=== PATIENT | male | born 1990 | race Caucasian/White ===

== ENCOUNTER 2021-09-03 01:50 | Emergency (ER) | payer MEDICAID, SELFPAY ==
[2021-09-03 02:19] VITALS: BP 134/64; PULSE 72; RESP 18; TEMP 37.1; O2SAT 97; BMI 22.1
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
[2021-09-03] MEDS: HYDROcodone-acetaminophen 7.5-325 mg Tablet 1 TAB PO ×2 (02:59→03:50)
--- NOTE | 2021-09-03 03:51 | PC.NURSE ---
Pt placed in posterior long-arm splint, R-arm, 4 inch orthoglass used, sling applied.
--- NOTE | 2021-09-03 14:24 | DCPLANNER ---
Addendum entered by Mariana Mejía 09/12/21 18:57: Patient had a follow up appointment scheduled for 09.06.21 with ortho - patient did attend appointment. Addendum entered by Mariana Mejía 09/05/21 18:50: Patient has a follow up appointment scheduled for Monday, September 06, 2021 at 10:[address] Larsen at ortho. Clinic will call patient with appointment information. Original Note: publication manager had message to schedule a follow up appointment for patient with ortho. publication manager sent patients information to the front office staff at ortho. Patients information will be printed and reviewed. Clinic will call patient with appointment information.
== END 2021-09-03 03:54 | disposition home or self-care (01) ==
PROVIDERS: Emergency Provider Physician Assistant
DX: S59.901A Unspecified injury of right elbow, initial encounter (principal); V28.4XXA Motorcycle driver injured in noncollision transport accident in traffic accident, initial encounter
CPT/HCPCS: 29105; 70450; 73030; 73060; 73080; 99283

== ENCOUNTER → 2021-09-06 11:33 | Outpatient (BNVA) | payer MEDICAID, SELFPAY | PROVIDERS: Referring Provider Physician Assistant; Visit Provider Orthopaedic Surgery | DX: S52.131A Displaced fracture of neck of right radius, initial encounter for closed fracture (principal); W19.XXXA Unspecified fall, initial encounter | CPT/HCPCS: 24650 ==

== ENCOUNTER 2022-06-15 21:08 | Emergency (ER) | payer MEDICAID, SELFPAY ==
[2022-06-15 21:15] VITALS: BP 143/100; PULSE 79; RESP 16; TEMP 36.3; O2SAT 98; BMI 21.7
[2022-06-15 21:21] VITALS: BP 143/100; PULSE 79; O2SAT 98
--- NOTE | 2022-06-15 21:23 | XRR_ITS ---
PROCEDURE INFORMATION: Exam: XR Left Wrist Exam date and time: 06/15/2022 9:27 PM Age: 32 years old Clinical indication: Pain; Wrist; Left; Additional info: Wrist pain and swelling TECHNIQUE: Imaging protocol: Radiologic exam of the Left wrist. Views: 3 or more views. COMPARISON: No relevant prior studies available. FINDINGS: Bones/joints: Normal. Soft tissues: Normal. XR/XR wrist LT min 3V* [id number] IMPRESSION: Unremarkable
--- NOTE | 2022-06-15 21:44 | W.ED.EXTPRO ---
HPI - Extremity Problem General: Chief complaint: Extremity Injury, Upper Stated complaint: Left Wrist Swollen Time Seen by Provider: 06/15/22 21:09 History of Present Illness: Patient is a 32-year-old male comes to the ED with left wrist pain. Symptoms started approximately 3 days ago. He has 4 out of 10 pain that is on the lateral aspect of wrist and radiates up into his thumb. He also endorses having some numbness and tingling in his thumb. He endorses having a little bit of numbness to index finger as well. Denies any fall, injury or trauma to cause pain. 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 Associated symptoms: Deny chest pain, fever(s) or rash Review of Systems Const: Denies: fever(s), chills or fatigue Eyes: Denies: change in vision or eye discomfort ENMT: Denies: throat pain, odynophagia, nasal discharge or nasal congestion Card: Denies: chest pain, palpitations, edema, swelling of feet/ankles, dyspnea on exertion or orthopnea Resp: Denies: dyspnea, productive cough or non-productive cough GI: Denies: abdominal pain, nausea, vomiting, diarrhea, constipation or hematochezia : Denies: flank pain, difficulty urinating, dysuria or hematuria Musc: Reports: extremity pain (Left wrist); Denies: neck pain, back pain or extremity swelling Skin/Breast: Denies: rash or new lesions Neuro: Denies: headache(s), numbness in extremities or weakness in extremities [facility] ED PFSH: Medical History No pertinent family history No pertinent past medical history Social History Smoking and tobacco status: never smoked Physical Exam Const: COMMON NORMALS: no acute distress, patient oriented x3 and healthy appearing GENERAL APPEARANCE: cooperative and comfortable HENMT: COMMON NORMALS: normocephalic HEAD & SCALP: normocephalic MOUTH: Normal oral and palatal mucosa present THROAT: posterior oropharynx normal and uvula midline Neck/C-Spine: COMMON NORMALS: supple GENERAL: Yes normal visual inspection Resp: COMMON NORMALS: normal respiratory effort, No retractions, No use of accessory muscles and clear to auscultation bilaterally AUSCULTATION: clear to auscultation bilaterally Cardio: COMMON NORMALS: regular rate, regular rhythm, S1 normal heart sound present, S2 normal heart sound present, No gallops present (Cardio), No clicks present (Cardio), No murmurs present (Cardio) and Peripheral pulses 2+ throughout RATE: regular rate RHYTHM: regular rhythm HEART SOUNDS: S1 normal heart sound present and S2 normal heart sound present PERIPHERAL PULSES: Peripheral pulses 2+ throughout GI: COMMON NORMALS: Normal to inspection, nondistended, normoactive bowel sounds present, Soft to palpation, non-tender and no masses PALPATION: Yes Soft to palpation : COMMON NORMALS: Yes no CVA tenderness BLADDER/KIDNEY EXAM: Yes no CVA tenderness Back/Pelvis: COMMON NORMALS: no CVA tenderness Extremity: LEFT UPPER EXTREMITY: Yes wrist Left wrist: Yes inspection (No visible deformities noted.), Yes palpation (Tenderness over radial aspect of wrist), Yes ROM (Full), Yes neurovascular exam (Intact) and Yes special tests Left wrist special tests: Phalen's test: Positive (Increased pain and numbness) Neuro: COMMON NORMALS: patient oriented x3 GAIT: Yes Normal gait present Skin: GENERAL SKIN EXAM: dry skin Course Vital Signs: Vital signs: Vital Signs Temperature 97.3 F L 06/15/22 21:15 Pulse Rate 83 06/15/22 22:23 Respiratory Rate 18 06/15/22 22:23 Blood Pressure 133/88 06/15/22 22:23 Pulse Oximetry 100 06/15/22 22:23 Oxygen Delivery Me thod 06/15/22 21:21 MDM - Extremity (Nontraumatic) Medical Decision Making Patient comes to the ED with left wrist pain. Denies any known injury or trauma. He is having numbness and tingling to his thumb and index finger. Vitals are stable. Exam of patient shows no deformity of wrist. Positive Phalen test. X-ray of the left wrist showed no acute findings. Patient was diagnosed with carpal tunnel syndrome left wrist and was given a dose of Toradol here in the ED. I placed an order with case management for patient referred to Ortho for follow-up. He was discharged home with a prescription for ibuprofen and prednisone. He understood agree with plan. Lab Data Radiology Impressions Wrist X-Ray 06/15/22 21:23 IMPRESSION: Unremarkable Discharge Plan Discharge Patient Disposition: Home Clinical Impression: Carpal tunnel syndrome of left wrist Condition: Stable Prescriptions: New prednisone 20 mg tablet 20 mg PO BID 5 Days Qty: 10 0RF ibuprofen 800 mg tablet 800 mg PO Q8H PRN (Reason: pain) Qty: 20 0RF No Action hydrocodone-acetaminophen 5-325 mg tablet 1 tab PO Q4H PRN (Reason: pain) 7 Days Qty: 30 0RF Discharge Orders: Discharge ED (Routine); Ordered 06/15/22 Ordered By: Sal Solo Discharge Diet: Regular Discharge Activity: Increase activity as tolerated Patient Instructions: Carpal Tunnel Syndrome (DC) Activity Restrictions/Additional Instructions: Follow-up with medical provider as directed. Case management should be contacting you in the next several days to set up an appointment with Ortho for follow-up on left wrist pain. Take medications as prescribed. Return to the ER or your medical provider if condition worsens. Please read and understand discharge instructions. Thank you for choosing [facility] for your healthcare needs today. Please realize this is an emergency room and that we are providing you with a medical screening exam and this may not be complete and all inclusive of all the testing and or work up that you may need to determine your ailment or severity of your illness. It is very important that you follow up as instructed or that you return to the Emergency Department should you have concerns or if your condition changes or worsens in any way. Stand Alone Forms: Work/School Release Coding Level of Care Code ED Harbour Master for Edward Snowden
[2022-06-15] MEDS: ketorolac 60 mg/2 mL INJ IM (21:56)
[2022-06-15 22:23] VITALS: BP 133/88; PULSE 83; RESP 18; O2SAT 100
--- NOTE | 2022-06-16 10:13 | DCPLANNER ---
Addendum entered by Mariana Mejía 07/03/22 11:58: Patient had a follow up appointment scheduled with ortho - patient did attend appointment. Original Note: conference planning manager had message to schedule a follow up appointment for patient with ortho. conference planning manager sent patients information to the front office staff at ortho. Patients information will be printed and reviewed. Clinic will call patient with appointment information.
== END 2022-06-15 22:24 | disposition home or self-care (01) ==
PROVIDERS: Emergency Provider Physician Assistant
DX: G56.02 Carpal tunnel syndrome, left upper limb (principal)
CPT/HCPCS: 73110; 96372; 99284; J1885

== ENCOUNTER 2022-06-25 15:19 | Outpatient (CLI) | payer MEDICAID, SELFPAY | END 2022-06-25 15:20 | disposition home or self-care (01) | LOC: SPT 15:20 | PROVIDERS: Visit Provider Orthopaedic Surgery | DX: Z46.89 Encounter for fitting and adjustment of other specified devices (principal); M77.9 Enthesopathy, unspecified | CPT/HCPCS: 97760; L3908 ==

== ENCOUNTER 2022-10-20 21:58 | Emergency (ER) | payer MEDICAID, SELFPAY ==
[2022-10-20] VITALS (8 sets, daily range): BP systolic 116–144; BP diastolic 76–91; PULSE 60–70; RESP 12–21; TEMP 36.3; O2SAT 90–100; BMI 22.4
--- NOTE | 2022-10-20 22:00 | ED_ITS ---
HPI - General Adult General: Chief complaint: Extremity Injury, Upper Stated complaint: shoulder pain Time Seen by Provider: 10/20/22 21:58 History of Present Illness: 32-year-old gentleman with history of prior right shoulder dislocation presenting to the emergency department for shoulder injury. He was attempting to move some furniture and lost his balance falling and catching his right arm on a gait. Feels worse pain than prior dislocations however oral feels similar. No head strike or loss of consciousness. Mild improvement with EMS administered fentanyl. No other specific changes in health, exacerbating, or alleviating factors identified. Onset (ago): minute(s) Severity: severe Pain Consistency: constant Exacerbating factors: movement Review of Systems General: Reports: 10 or more systems reviewed and unremarkable except in HPI and below PFSH ED PFSH: Medical History No pertinent family history No pertinent past medical history Social History Smoking and tobacco status: never smoked Physical Exam Const: COMMON NORMALS: alert GENERAL APPEARANCE: cooperative and well developed HENMT: COMMON NORMALS: normocephalic and atraumatic HEAD & SCALP: normocephalic and atraumatic THROAT: posterior oropharynx normal Eye: COMMON NORMALS: conjunctivae normal CONJUNCTIVA: Yes conjunctivae normal SCLERA: sclerae normal Neck/C-Spine: COMMON NORMALS: supple GENERAL: Yes trachea midline Resp: COMMON NORMALS: normal respiratory effort EFFORT & INSPECTION: Yes able to speak in complete sentences Cardio: COMMON NORMALS: regular rate and regular rhythm RATE: regular rate RHYTHM: regular rhythm GI: COMMON NORMALS: Soft to palpation PALPATION: Yes Soft to palpation and No Tenderness to palpation present (GI) Extremity: NARRATIVE EXTREMITY EXAM: Right shoulder clinically appears dislocated. CMS intact GENERAL: Yes normal exam except as noted and No edema Neuro: COMMON NORMALS: moves all extremities SENSORIUM/ORIENTATION: Yes alert and No Orientation impaired Psych: COMMON NORMALS: mental status grossly normal and Normal thought process present THOUGHT PROCESS: Normal thought process present Procedures Orthopedic Joint Reduction Joint #1: Time Out Performed: Yes Side: right Joint Reduction Location: shoulder Analgesia: procedural sedation Shoulder Technique Used (if applicable): other (Parth) Post-reduction neuro exam: intact and no change Post-reduction vascular: intact and no change Post Reduction X-Ray Obtained: Yes Post Reduction X-Ray Results: reduced Splint Applied: Yes Patient Tolerated Procedure: well and no complications Procedural Sedation ASA Class: I Preparation: air sampling and monitoring applied, pulse oximeter, suction/airway equipment at bedside and IV secured IV Propofol dose (mg): 100 Patient Tolerated Procedure: well and no complications Complications: none Course Vital Signs: Vital signs: Vital Signs Temperature 97.3 F L 10/20/22 22:01 Pulse Rate 73 10/21/22 00:48 Respiratory Rate 14 10/21/22 00:48 Blood Pressure 108/92 10/21/22 00:48 Pulse Oximetry 91 10/21/22 00:48 Oxygen Delivery Me thod Room Air 10/21/22 00:31 MDM - General Adult Medical Decision Making 32-year-old gentleman presenting with shoulder injury. Exam as above. Distressed appearing due to pain. No indication for labs. Initial x-rays demonstrates dislocation. Given degree of pain despite medication patient requires procedural sedation for orthopedic joint reduction. Consent was obtained. Procedure performed and shoulder was easily reduced with Parth with successful reduction with initial external rotation. Patient completely recovered and tolerated procedure well. X-rays confirm reduction. Patient placed in shoulder immobilizer for orthopedic follow-up. The results of ED evaluation were discussed with the patient including prescriptions and/or symptomatic cares (if applicable) including appropriate and responsible use, followup plan, and return precautions. The patient verbalized u nderstanding and felt safe for discharge. Medical Records I reviewed the patient's medical records. Lab Data I reviewed the patient's lab results. Radiology Impressions Shoulder X-Ray 10/20/22 23:02 IMPRESSION: 1. Status post reduction of previous anterior glenohumeral dislocation. 2. No acute fracture demonstrated. Discharge Plan Discharge Patient Disposition: Home Clinical Impression: Anterior shoulder dislocation Condition: Stable Prescriptions: New oxycodone 5 mg tablet 5 mg PO Q4H PRN (Reason: pain) Qty: 20 0RF No Action naproxen [Naprosyn] 500 mg tablet 500 mg PO BID 21 Days Qty: 42 0RF (DME) cock up splint See Rx Instructions .Route .MEDSUPPLY Qty: 1 0RF Rx Instructions: As directed hydrocodone-acetaminophen 5-325 mg tablet 1 tab PO Q4H PRN (Reason: pain) 7 Days Qty: 30 0RF ibuprofen 800 mg tablet 800 mg PO Q8H PRN (Reason: pain) Qty: 20 0RF Discharge Orders: Discharge ED (Routine); Ordered 10/20/22 Ordered By: Bharathi Sears Discharge Diet: Usual diet Discharge Activity: Limit activity as instructed Patient Instructions: Shoulder Dislocation (ED), Procedural Sedation (ED), Shoulder Immobilizer (ED), Opioid Safety Activity Restrictions/Additional Instructions: Thank you for visiting the emergency department. You were seen and evaluated for shoulder injury. You were found to have a shoulder dislocation which was successfully reduced with procedural sedation. You were placed in a shoulder immobilizer. I will message case management for orthopedic follow-up. Wear the immobilizer until further instructions by orthopedic physician. You may use [id number] medications such as acetaminophen and ibuprofen for pain however please do not exceed the daily recommended dosage as listed on the packaging and please keep in mind that many namebrand medications contain the same active ingredients. Please avoid these medications if previously instructed to do so by another physician due to other underlying medical condition. I will prescribe oxycodone for pain not controlled by Tylenol and ibuprofen. Use this cautiously as it is an opioid. Do not combine it with other sedating substances. Do not operate machinery or otherwise perform tasks that could be dangerous while using this medication. Return to the emergency department immediately for loss of feeling or ability to move or color change such as bluing of your hand. Return for anything else that you are concerned about and feel needs emergency department evaluation. Stand Alone Forms: Work/School Release Coding Level of Care Code ED Line Director for Edward Snowden
--- NOTE | 2022-10-20 22:06 | XRR_ITS ---
PROCEDURE INFORMATION: Exam: XR Right Shoulder Exam date and time: 10/20/2022 10:17 PM Age: 32 years old Clinical indication: Injury or trauma; Fall; Blunt trauma (contusions or hematomas); Shoulder; Right; Additional info: Right shoulder injury TECHNIQUE: Imaging protocol: Radiologic exam of the right shoulder. Views: 2 or more views. COMPARISON: CR XR shoulder RT min 2V* [id number] 09/03/2021 2:37 AM FINDINGS: Bones/joints: Anterior dislocation of the glenohumeral joint. No acute fracture or other acute osseous abnormality. The acromioclavicular joint is intact. Soft tissues: The soft tissues are unremarkable as demonstrated. XR/XR shoulder RT min 2V* [id number] IMPRESSION: 1. Anterior dislocation of the glenohumeral joint. 2. No associated fracture demonstrated.
[2022-10-20] MEDS: ondansetron 2 mg/ML SDV 2 mL 4 MG IVP (22:34)
[2022-10-20] MEDS: LORazepam 2 mg/mL INJ 1 mL 0.5 MG IVP (22:34)
[2022-10-20] MEDS: propofol 10 mg/mL SDV 20 mL IVP (22:57)
--- NOTE | 2022-10-20 23:02 | XRR_ITS ---
PROCEDURE INFORMATION: Exam: XR Right Shoulder Exam date and time: 10/20/2022 11:07 PM Age: 32 years old Clinical indication: Injury or trauma; Fall; Other: Post reduction TECHNIQUE: Imaging protocol: Radiologic exam of the right shoulder. Views: 2 or more views. COMPARISON: CR (CHEST, ) 10/20/2022 10:17 PM FINDINGS: Bones/joints: Previously noted anterior glenohumeral joint dislocation has been reduced. No fracture demonstrated. Soft tissues: Unremarkable. XR/XR shoulder RT min 2V* [id number] IMPRESSION: 1. Status post reduction of previous anterior glenohumeral dislocation. 2. No acute fracture demonstrated.
[2022-10-20] MEDS: sodium chloride 0.9% 1,000 ML 999 ML IV (23:14)
[2022-10-20] MEDS: ketorolac 30 mg/mL INJ 15 MG IVP (23:32)
[2022-10-20] MEDS: acetaminophen 500 mg Tablet 1000 MG PO (23:32)
[2022-10-21] VITALS: BP 149/88; PULSE 67; RESP 15; O2SAT 97
[2022-10-21 00:31] VITALS: BP 108/92; PULSE 90; RESP 19; O2SAT 98
[2022-10-21 00:48] VITALS: BP 108/92; PULSE 73; RESP 14; O2SAT 91
[2022-10-21] MEDS: oxyCODONE 5 mg IR Tab/Cap 15 MG PO (00:50)
--- NOTE | 2022-10-21 11:04 | PC.SOCIAL ---
Addendum entered by Mariana Mejía 10/31/22 15:15: Patient had a follow up appointment scheduled with ortho - patient did not attend appointment. Original Note: Ortho Referral Referral sent to ortho for f/u at this time. Clinic will contact patient with appt date/time.
== END 2022-10-21 00:54 | disposition home or self-care (01) ==
PROVIDERS: Emergency Provider Emergency Medicine
DX: S43.004A Unspecified dislocation of right shoulder joint, initial encounter (principal); W18.39XA Other fall on same level, initial encounter
CPT/HCPCS: 23650; 73030; 96361; 96374; 96375; 99152; 99285; J1885; J2060; J2405; J2704; J7030

== ENCOUNTER 2022-11-08 05:28 | Emergency (ER) | payer MEDICAID, SELFPAY ==
[2022-11-08] VITALS (15 sets, daily range): BP systolic 122–157; BP diastolic 80–104; PULSE 67–86; RESP 14–22; TEMP 36.8; O2SAT 98–100; BMI 23.0
--- NOTE | 2022-11-08 05:38 | XRR_ITS ---
PROCEDURE INFORMATION: Exam: XR Right Shoulder Exam date and time: 11/08/2022 5:41 AM Age: 32 years old Clinical indication: Injury or trauma; Other: Dislocation; Right; Patient HX: Patient states he dislocated his shoulder. Obvious deformity to shoulder. TECHNIQUE: Imaging protocol: Radiologic exam of the right shoulder. Views: 2 or more views. COMPARISON: CR (CHEST, ) 10/20/2022 11:07 PM FINDINGS: Bones/joints: There is anterior inferior dislocation of the humeral head in relation to the glenoid. No clear evidence of fracture. Soft tissues: Normal. XR/XR shoulder RT min 2V* [id number] IMPRESSION: Right shoulder anterior dislocation. Marked
[2022-11-08] MEDS: HYDROmorphone 1 mg/mL INJ 1 mL IVP (05:57)
[2022-11-08] MEDS: ondansetron 2 mg/ML SDV 2 mL 4 MG IVP (05:57)
[2022-11-08] MEDS: midazolam 1 mg/mL INJ 2 mL 2 MG IVP (06:29)
[2022-11-08] MEDS: etomidate 2 mg/mL INJ SDV 10 mL 20 MG IVP (06:32)
--- NOTE | 2022-11-08 06:45 | XRR_ITS ---
PROCEDURE INFORMATION: Exam: XR Right Shoulder Exam date and time: 11/08/2022 6:35 AM Age: 32 years old Clinical indication: Injury or trauma; Other: Lifting; Dislocation; Severity not specified; Shoulder; Right; Injury details: Post reduc TECHNIQUE: Imaging protocol: Radiologic exam of the right shoulder. Views: 2 or more views. COMPARISON: CR XR shoulder RT min 2V* [id number] 11/08/2022 5:41 AM FINDINGS: Bones/joints: Interval successful reduction of right shoulder anterior dislocation. No fracture identified. Soft tissues: Normal. XR/XR shoulder RT min 2V* [id number] IMPRESSION: Interval successful reduction of right shoulder dislocation.
--- NOTE | 2022-11-08 06:48 | ED_ITS ---
HPI - Extremity Problem General: Chief complaint: Extremity Injury, Upper Stated complaint: right should pain Time Seen by Provider: 11/08/22 06:05 Source: patient History of Present Illness: 32-year-old male with a history of multiple shoulder dislocations on the right. He was moving furniture, when he dislocated his shoulder again. He dislocated that last around a month ago. He complains of intense pain. He is diaphoretic on arrival. MD Complaint: joint swelling and joint pain Onset (ago): hour(s) Pain Consistency: constant Location: right and upper extremity (Shoulder) Exacerbating factors: range of motion Associated symptoms: Deny chest pain, fever(s), rash or short of breath Review of Systems Const: Denies: fever(s) ENMT: Reports: throat pain Card: Denies: chest pain Musc: Denies: neck pain Skin/Breast: Denies: rash PFSH ED PFSH: Medical History No pertinent family history No pertinent past medical history Social History Smoking and tobacco status: never smoked Physical Exam Const: GENERAL APPEARANCE: cooperative HENMT: COMMON NORMALS: normocephalic and atraumatic HEAD & SCALP: normocephalic and atraumatic FACE & SINUS: normal facial exam Eye: COMMON NORMALS: Equal, round and reactive pupils present and EOMs intact bilaterally PUPIL: Yes Equal, round and reactive pupils present Neck/C-Spine: GENERAL: Yes trachea midline Chest: CHEST: Yes Symmetrical chest wall rise Resp: COMMON NORMALS: normal respiratory effort and No use of accessory muscles Cardio: COMMON NORMALS: regular rate and regular rhythm RATE: regular rate RHYTHM: regular rhythm Extremity: NARRATIVE EXTREMITY EXAM: Deformity to the right shoulder, with obvious anterior dislocation. Tenderness to palpation. Pain with any range of motion. Pulses are intact distally as well as sensation Neuro: MICAELA COMA SCALE: document GCS findings Micaela coma scale eye opening: Spontaneous Micaela coma scale verbal response: Orientated Micaela coma scale motor response: [place]bey commands [place] coma scale total score: 15 Procedures Orthopedic Joint Reduction Joint #1: Time Out Performed: Yes Side: right Joint Reduction Location: shoulder Analgesia: procedural sedation Shoulder Technique Used (if applicable): scapula manipulation Technique used: direct manipulation Post-reduction neuro exam: intact Post-reduction vascular: intact Post Reduction X-Ray Obtained: Yes Post Reduction X-Ray Results: reduced Splint Applied: Yes Patient Tolerated Procedure: well and no complications Procedural Sedation Indication: fracture/dislocation reduction Preparation: air sampling and monitoring applied, pulse oximeter, supplemental O2 applied, suction/airway equipment at bedside and IV secured Midazolam: IV Midazolam dose (mg): 2 IV Etomidate dose (mg): 20 Patient Tolerated Procedure: well and no complications Complications: none Course Vital Signs: Vital signs: Vital Signs Temperature 98.3 F 11/08/22 05:35 Pulse Rate 72 11/08/22 08:05 Respiratory Rate 16 11/08/22 08:05 Blood Pressure 122/88 11/08/22 08:05 Pulse Oximetry 100 11/08/22 08:05 Oxygen Delivery Me thod Room Air 11/08/22 08:01 Oxygen Flow Rate 4 11/08/22 07:00 MDM - Extremity (Nontraumatic) Medical Decision Making Shoulder reduction under moderate sedation was successful without complication. Patient is placed in a shoulder immobilizer, will asked to follow-up with orthopedics. Given the ease with which it has dislocated, and the further he has had which it reduced, formal therapy and/or other intervention may be necessary. Ice, pain medication, anti-inflammatory, etc. Lab Data Radiology Impressions Shoulder X-Ray 11/08/22 06:45 IMPRESSION: Interval successful reduction of right shoulder dislocation. Discharge Plan Discharge Patient Disposition: Home Clinical Impression: Dislocation of shoulder region Condition: Stable Prescriptions: New Percocet 7.5-325 mg tablet 1 tab PO Q6H PRN (Reason: pain) Qty: 10 0RF Continued Naprosyn 500 mg tablet 500 mg PO BID 21 Days Qty: 42 0RF Discontinued hydrocodone-acetaminophen 5-325 mg tablet 1 tab PO Q4H PRN (Reason: pain) 7 Days Qty: 30 0RF oxycodone 5 mg tablet 5 mg PO Q4H PRN (Reason: pain) Qty: 20 0RF ibuprofen 800 mg tablet 800 mg PO Q8H PRN (Reason: pain) Qty: 20 0RF No Action (DME) cock up splint See Rx Instructions .Route .MEDSUPPLY Qty: 1 0RF Rx Instructions: As directed Discharge Orders: Discharge ED (Routine); Ordered 11/08/22 Ordered By: Lorenzo Alfaro Referrals: Lili Berman MD [Physician] - 4-7 days Patient Instructions: Shoulder Dislocation (ED), Closed Reduction (ED), Opioid Safety, Pain Management Activity Restrictions/Additional Instructions: Follow-up with orthopedics next week. Stay in your shoulder immobilizer with activities, until evaluated. Return for any problems. Coding Level of Care Code ED Decision Support Analyst for Edward Snowden
== END 2022-11-08 08:06 | disposition home or self-care (01) ==
PROVIDERS: Emergency Provider Emergency Medicine
DX: S43.004A Unspecified dislocation of right shoulder joint, initial encounter (principal); X50.0XXA Overexertion from strenuous movement or load, initial encounter
CPT/HCPCS: 23650; 73030; 94762; 94799; 96374; 96375; 99152; 99285; J1170; J2250; J2405; J3490

== ENCOUNTER 2023-01-18 20:56 | Emergency (ER) | payer MEDICAID, SELFPAY ==
[2023-01-18 20:57] VITALS: BP 132/71; PULSE 83; RESP 16; TEMP 36.4; O2SAT 95; BMI 22.4
--- NOTE | 2023-01-18 21:04 | XRR_ITS ---
PROCEDURE INFORMATION: Exam: XR Right Shoulder Exam date and time: 01/18/2023 9:07 PM Age: 32 years old Clinical indication: Injury or trauma; Other: Unknown; Dislocation; Severity not specified; Shoulder; Right; Additional info: Dislocation, HX of dislocation. Reduced prior to arrival but doesnt feel TECHNIQUE: Imaging protocol: Radiologic exam of the right shoulder. Views: 2 or more views. COMPARISON: CR XR shoulder RT min 2V* [id number] 11/08/2022 6:35 AM FINDINGS: Bones/joints: Since the recent prior films from October of this year the shoulder is reduced. There is no dislocation or fracture. No degenerative change. The AC joint is aligned. The right ribs are intact. Soft tissues: Normal. XR/XR shoulder RT min 2V* [id number] IMPRESSION: Reduced right glenohumeral joint. There is no visible acute abnormality
--- NOTE | 2023-01-18 21:33 | ED_ITS ---
HPI - Extremity Problem General: Chief complaint: Extremity Injury, Upper Stated complaint: shoulder popped out of place Time Seen by Provider: 01/18/23 21:03 Source: patient Mode of arrival: ambulatory Limitations: no limitations History of Present Illness: Patient presents to the emergency department today accompanied by family for evaluation treatment of right shoulder pain. Patient has a history of right anterior shoulder dislocation. Patient states that tonight while using a hammer he dislocated his shoulder. He states that on the way here he was able to get it back and reduced but still feels like it is not right . He complains of pain to the right anterior shoulder region. Patient states he has never had follow-up with orthopedics regarding his shoulder as has been recommended to him in the past when this is happened. Review of Systems General: Reports: 10 or more systems reviewed and unremarkable except in HPI and below PFSH ED PFSH: Medical History No pertinent family history No pertinent past medical history Psychiatric care Social History Smoking and tobacco status: never smoked Physical Exam Const: COMMON NORMALS: no acute distress, patient oriented x3 and alert HENMT: COMMON NORMALS: normocephalic, atraumatic and hearing grossly normal bilaterally HEAD & SCALP: normocephalic and atraumatic Eye: COMMON NORMALS: Equal, round and reactive pupils present, EOMs intact bilaterally and conjunctivae normal CONJUNCTIVA: Yes conjunctivae normal PUPIL: Yes Equal, round and reactive pupils present Neck/C-Spine: COMMON NORMALS: full ROM and no JVD Lymph: LYMPHATIC: no lymphadenopathy noted Resp: COMMON NORMALS: normal respiratory effort, No retractions and No use of accessory muscles Cardio: COMMON NORMALS: no JVD and regular rate RATE: regular rate Extremity: NARRATIVE EXTREMITY EXAM: Patient with significant decreased range of motion due to pain. On palpation, patient is tender in the anterior right shoulder without tenderness across the clavicle, AC joint, or acromion process from the scapula. Patient still with mobility in the elbow, wrist, and fingers without loss of sensation or weakness in the hand. Neuro: COMMON NORMALS: patient oriented x3 SENSORIUM/ORIENTATION: Yes alert Psych: COMMON NORMALS: mental status grossly normal, Normal thought process present, cooperative and normal affect THOUGHT PROCESS: Normal thought process present Skin: COMMON NORMALS: no rashes or lesions noted and turgor normal GENERAL SKIN EXAM: no rashes or lesions noted and turgor normal Course Vital Signs: Vital signs: Vital Signs Temperature 97.5 F L 01/18/23 20:57 Pulse Rate 83 01/18/23 20:57 Respiratory Rate 16 01/18/23 20:57 Blood Pressure 132/71 01/18/23 20:57 Pulse Oximetry 95 01/18/23 20:57 Oxygen Delivery Me thod Room Air 01/18/23 20:57 MDM - Extremity (Nontraumatic) Medical Decision Making X-ray today shows shoulder joint in the correct location. Explained to the patient that he really needs to follow-up with orthopedics as he most likely would benefit from surgical intervention and explained that he can do permanent damage-even getting to the point where the shoulder cannot be reduced and held if he continues to injure his connective tissues. Patient is given a short course of some pain medication and a sling. Referral to Ortho placed on his behalf. Patient verbalizes understanding and agreement to treatment plan. Differential Diagnosis Unlikely herpes zoster, gout, cellulitis or deep venous thrombosis of upper extremity Lab Data Radiology Impressions Shoulder X-Ray 01/18/23 21:04 IMPRESSION: Reduced right glenohumeral joint. There is no visible acute abnormality All radiology interpretation(s) finalized by discharge Discharge Plan Discharge Patient Disposition: Home Clinical Impression: Acute pain of right shoulder Condition: Stable Prescriptions: No Action (DME) cock up splint See Rx Instructions .Route .MEDSUPPLY Qty: 1 0RF Rx Instructions: As directed Percocet 7.5-325 mg tablet 1 tab PO Q6H PRN (Reason: pain) Qty: 10 0RF Naprosyn 500 mg tablet 500 mg PO BID 21 Days Qty: 42 0RF Discharge Orders: Discharge ED (Routine); Ordered 01/18/23 Ordered By: Roseanne Hui Discharge Diet: Usual diet Discharge Activity: Increase activity as tolerated Patient Instructions: Shoulder Dislocation (ED) Activity Restrictions/Additional Instructions: X-ray shows successful reduction of your right shoulder dislocation. We are providing you pain medication and a sling. However, I am also sending another referral to orthopedics for follow-up as I think will be very important for you to discuss with them the recurrence of these dislocations. Unfortunately this can begin to cause permanent damage which can begin to affect mobility of the extremity and, even cause issues down your arm. If you dislocate your arm again and need assistance reducing it, please come back. Coding Level of Care Code ED Assurance Analyst for Edward Snowden
[2023-01-18] MEDS: ketorolac 60 mg/2 mL INJ IM (22:15)
[2023-01-18] MEDS: dexamethasone 10 mg/mL INJ IM (22:18)
[2023-01-18] MEDS: HYDROcodone-acetaminophen 5-325 mg Tablet 1 TAB PO (22:18)
--- NOTE | 2023-01-19 08:55 | PC.SOCIAL ---
Ortho Referral Referral message sent to ortho clinic at this time. Clinic to contact patient with appt date/time.
== END 2023-01-18 22:45 | disposition home or self-care (01) ==
PROVIDERS: Emergency Provider Physician Assistant
DX: M25.511 Pain in right shoulder (principal)
CPT/HCPCS: 73030; 96372; 99284; J1100; J1885

== ENCOUNTER 2023-01-22 09:36 | Emergency (ER) | payer MEDICAID, SELFPAY ==
[2023-01-22 09:38] VITALS: BP 130/82; PULSE 96; RESP 16; TEMP 36.6; O2SAT 97; BMI 23.0
--- NOTE | 2023-01-22 09:51 | XR_ITS ---
WS: [id number] RIGHT SHOULDER: 3 VIEW(S) TECHNIQUE: Internal and external rotation with Y view. HISTORY: trauma COMPARISON: None available. No fracture or dislocation or soft tissue abnormality. Glenohumeral and AC joints are unremarkable. IMPRESSION: Normal RIGHT shoulder. No dislocation is evident.
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
[2023-01-22] MEDS: ketorolac 60 mg/2 mL INJ IM (10:27)
--- NOTE | 2023-01-22 11:42 | ED_ITS ---
HPI - Extremity Problem General: Chief complaint: Extremity Injury, Upper Stated complaint: possible dislocation Time Seen by Provider: 01/22/23 09:40 Source: patient Mode of arrival: EMS History of Present Illness: 32-year-old male presents emergency room complaining of right shoulder dislocation. He states he is already reduced it. He has had this several times in the past. He is complaining of discomfort radiating down his arm. He has not had any follow-up for the multiple shoulder dislocations he has had previously. On arrival here he is not obviously dislocated. He has 2 documented in previous shoulder dislocations that were reduced in the emergency room here in the last 3 months. He has not had any follow-up with radiology for these he had 1 other visit complaining of shoulder pain when she was not disloca jennifer. MD Complaint: joint pain Onset (ago): minute(s) Pain Consistency: constant Location: right (Shoulder) Quality: sharp Radiation: none Relieving factors: nothing Exacerbating factors: nothing Associated symptoms: Deny arthralgias, chest pain, fever(s), myalgias, rash or short of breath Review of Systems Const: Denies: fever(s), chills, fatigue or malaise Card: Denies: chest pain, palpitations or irregular heart rhythm Resp: Denies: dyspnea, productive cough or non-productive cough GI: Denies: abdominal pain, nausea or vomiting Musc: Reports: joint pain Skin/Breast: Denies: rash PFSH ED PFSH: Medical History No pertinent family history No pertinent past medical history Psychiatric care Social History Smoking and tobacco status: never smoked Physical Exam Const: GENERAL APPEARANCE: cooperative and comfortable ORIENTATION/CONSCIOUSNESS: Yes awake, Yes oriented to person, Yes oriented to place and Yes oriented to time HENMT: COMMON NORMALS: normocephalic, atraumatic and hearing grossly normal bilaterally HEAD & SCALP: normocephalic and atraumatic Resp: COMMON NORMALS: normal respiratory effort, No retractions, No use of accessory muscles and clear to auscultation bilaterally AUSCULTATION: clear to auscultation bilaterally Cardio: COMMON NORMALS: regular rate, regular rhythm and No murmurs present (Cardio) RATE: regular rate RHYTHM: regular rhythm Extremity: COMMON NORMALS: normal to inspection, capillary refill normal, no clubbing, cyanosis or edema, no calf tenderness and no pedal edema OTHER: Neurovascular intact in the right arm throughout Neuro: SENSORIUM/ORIENTATION: Yes oriented to person, Yes oriented to place and Yes oriented to time Skin: COMMON NORMALS: no rashes or lesions noted GENERAL SKIN EXAM: no rashes or lesions noted Course Vital Signs: Vital signs: Vital Signs Temperature 97.9 F 01/22/23 09:38 Pulse Rate 96 01/22/23 09:38 Respiratory Rate 16 01/22/23 09:38 Blood Pressure 130/82 01/22/23 09:38 Pulse Oximetry 97 01/22/23 09:38 Oxygen Delivery Me thod Room Air 01/22/23 09:38 MDM - Extremity (Nontraumatic) Medical Decision Making No deformity suggestive of shoulder dislocation at the bedside x-ray confirms. Discharge patient home recommend sling and follow-up with orthopedics encouraged him to make sure he follows through the orthopedics he has had several shoulder injuries he did not appear to be dislocated we got here he tells me he self reduces these at this point. He should be evaluated and likely will need an MRI. We will make arrangements for him to follow-up with Ortho. he indicates he does not plan to wear the sling Medical Records I reviewed the patient's medical records. Lab Data I reviewed the patient's lab results. All radiology interpretation(s) finalized by discharge Discharge Plan Discharge Patient Disposition: Home Clinical Impression: Acute pain of right shoulder Condition: Stable Prescriptions: New diclofenac sodium 75 mg tablet,delayed release (DR/EC) 75 mg PO Q12H PRN (Reason: pain) Qty: 20 0RF No Action (DME) cock up splint See Rx Instructions .Route .MEDSUPPLY Qty: 1 0RF Rx Instructions: As directed hydrocodone-acetaminophen 7.5-325 mg tablet 1 tab PO Q8H PRN (Reason: Pain) Discharge Orders: Discharge ED (Routine); Ordered 01/22/23 Ordered By: Cam Darnell Discharge Diet: Regular Discharge Activity: Limit activity as instructed Patient Instructions: Opioid Safety, Pain Management Activity Restrictions/Additional Instructions: You were seen today for right shoulder pain. Recommend you use a shoulder sling and anti-inflammatories until you are seen in follow-up by orthopedics. Case management make arrangements for follow-up appointment. 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
--- NOTE | 2023-01-22 13:37 | PC.SOCIAL ---
Ortho Referral Referral to ortho at this time. Clinic to contact patient with appt date/time.
== END 2023-01-22 10:53 | disposition home or self-care (01) ==
PROVIDERS: Emergency Provider Family Medicine
DX: M25.511 Pain in right shoulder (principal)
CPT/HCPCS: 73030; 96372; 99284; J1885

== ENCOUNTER 2024-12-04 20:42 | Emergency (ER) | payer SELFPAY ==
[2024-12-04 21:33] VITALS: BP 123/74; PULSE 68; RESP 16; TEMP 36.9; O2SAT 98
--- NOTE | 2024-12-04 22:26 | W.ED.DENTAL ---
Documented by User: RANDY Bolivar 12/04/24 22:29 HPI - Dental/Oral General: Chief complaint: Dental/Oral Stated complaint: [place] Teeth pain Time Seen by Provider: 12/04/24 21:57 Source: patient Mode of arrival: ambulatory Limitations: no limitations History of Present Illness: Patient is a 34-year-old male who presents to Emergency Department complaining of broken teeth and lower dental pain. States that he has broken wisdom teeth bilaterally has tried to call the dentist but they states that he needs to go to the emergency department to get treated for infection first. Notes that the pain is severe, he has been taking Tylenol with no relief. No swelling to the posterior pharynx or issue swallowing. States the pain is starting to track towards his ear on the right and left side of his face. States he does not want anything for pain, just wants antibiotics so that he can follow-up with dentist to have the tooth removed. Associated symptoms: Denies ear or mastoid pain or fever(s) Related Data Home Medications ?Medication ?Instructions ?Recorded ?Confirmed hydrocodone 7.5 mg-acetaminophen 1 tab PO Q8H PRN Pain 01/22/23 01/22/23 325 mg tablet Previous Rx's ?Medication ?Instructions ?Recorded cock up splint #1 ea 06/25/22 diclofenac sodium 75 mg 75 mg PO Q12H PRN pain #20 tabs 01/22/23 tablet,delayed release amoxicillin 875 mg-potassium 1 tab PO BID 10 days #20 tabs 12/04/24 clavulanate 125 mg tablet ketorolac 10 mg tablet 10 mg PO Q8H PRN pain #15 tabs 12/04/24 Allergies Allergy/AdvReac Type Severity Reaction Status Date / Time codeine Allergy ADR-Nausea Verified 10/18/24 09:44 Review of Systems General: Reports: 10 or more systems reviewed and unremarkable except in HPI and below Const: Denies: fever(s), chills or fatigue Eyes: Denies: change in vision ENMT: Reports: mouth pain, dental pain and sinus pain; Denies: throat pain, ear or mastoid pain or nasal discharge Card: Denies: chest pain, palpitations, swelling of feet/ankles or lightheadedness Resp: Denies: dyspnea, productive cough or wheezing GI: Denies: abdominal pain, nausea, vomiting, diarrhea or constipation : Denies: flank pain, difficulty urinating, dysuria or urinary frequency Musc: Denies: neck pain, back pain or joint pain Skin/Breast: Denies: rash Neuro: Denies: headache(s), numbness in extremities or weakness in extremities PFSH ED PFSH: Medical History Psychiatric care No pertinent past medical history No pertinent family history Social History Smoking and tobacco/nicotine status: never used tobacco/nicotine Physical Exam Const: COMMON NORMALS: no acute distress, patient oriented x3, no limitations, alert and well nourished ORIENTATION/CONSCIOUSNESS: Yes awake HENMT: COMMON NORMALS: normocephalic and atraumatic HEAD & SCALP: normocephalic and atraumatic OTHER: Fractured wisdom teeth bilaterally on the lower jaw, there is surrounding gingival edema and tenderness to palpation. Tenderness to patient's right and left mandibular region with no obvious swelling. Neck/C-Spine: COMMON NORMALS: full ROM and no lymphadenopathy Resp: COMMON NORMALS: normal respiratory effort and No use of accessory muscles Neuro: COMMON NORMALS: patient oriented x3 SENSORIUM/ORIENTATION: Yes alert Course Vital Signs: Vital signs: Vital Signs Temperature 98.4 F 12/04/24 21:33 Pulse Rate 68 12/04/24 21:33 Respiratory Rate 16 12/04/24 21:33 Blood Pressure 123/74 12/04/24 21:33 Pulse Oximetry 98 12/04/24 21:33 Oxygen Delivery Me thod Room Air 12/04/24 21:33 MDM - Dental/Oral Medical Decision Making Patient will be treated for dental abscess prior to being seen by dentist this week, which she is already in contact with. He is given Toradol here for pain and his first dose of Augmentin. General return precautions given. No radiology studies performed this visit Discharge Plan Discharge Patient Disposition: Home Clinical Impression: Dental abscess Fracture of tooth Qualifiers: Encounter type: initial encounter Fracture type: closed Qualified Code(s): S02.5XXA - Fracture of tooth (traumatic), initial encounter for closed fracture Condition: Stable Prescriptions: New ketorolac 10 mg tablet 10 mg PO Q8H PRN (Reason: pain) Qty: 15 0RF amoxicillin-pot clavulanate 875-125 mg tablet 1 tab PO BID 10 Days Qty: 20 0RF No Action (DME) cock up splint See Rx Instructions .Route .MEDSUPPLY Qty: 1 0RF Rx Instructions: As directed hydrocodone-acetaminophen 7.5-325 mg tablet 1 tab PO Q8H PRN (Reason: Pain) diclofenac sodium 75 mg tablet,delayed release (DR/EC) 75 mg PO Q12H PRN (Reason: pain) Qty: 20 0RF Discharge Orders: Discharge ED (Routine); Ordered 12/04/24 Ordered By: Jesus Titus Patient Instructions: Patient Portal & Yahir Instructions Activity Restrictions/Additional Instructions: Dental discharge Reason for visit: fractured tooth with concern for dental infection (dental abscess). A dentist needs to treat the tooth as soon as possible (root canal or draining an abscess, or extraction if recommended). Antibiotics can help with infection, but they are not a cure by themselves. Dental treatment is the most important step for getting better. Medications prescribed today - Augmentin (amoxicillin?clavulanate): This is an antibiotic to help treat a dental infection. Take it exactly as directed with food to reduce stomach upset. Do not skip doses. Stop the antibiotic 24 hours after all symptoms (fever, facial swelling, draining pus, and spreading redness) have completely resolved, even if there are pills left. - Toradol (ketorolac): This is a non-steroidal anti-inflammatory drug (NSAID) for pain. Take only as prescribed and for the shortest time needed, usually no more than a few days. Do not combine with other NSAIDs like ibuprofen or naproxen. Avoid if there is a history of stomach ulcers/bleeding, kidney problems, or if taking blood thinners, unless a clinician has told you it is safe. Important safety information - Augmentin: Take each dose with a meal or snack. Call right away for rash, hives, trouble breathing, or severe diarrhea (especially watery/bloody stools or diarrhea lasting more than 2?3 days). Do not save antibiotics for future use or share them. - Toradol: Use the lowest dose for the shortest time. Stop and seek care for black/tarry stools, vomiting blood, new stomach pain, decreased urination, swelling, or easy bruising/bleeding. Care for a fractured tooth - Eat soft, cool foods; avoid chewing on the injured side. - Avoid very hot, very cold, hard, or sticky foods that can worsen pain or break the tooth more. - If a piece of the tooth broke off and is available, keep it moist (milk or saline) and bring it to the dentist; it may help with repair in some cases. - [id number] options: If additional pain control is needed and there are no kidney, stomach, or bleeding problems, an NSAID like ibuprofen may help after Toradol is stopped. Acetaminophen can be used with an NSAID if needed, keeping total acetaminophen under 3,000?4,000 mg per day from all sources. - A dentist should evaluate the tooth urgently to decide on repair (filling or bonding), root canal, or extraction. Care for a dental abscess (tooth infection) - Why dental treatment is needed: The infection comes from inside the tooth. Antibiotics can help if there are signs of infection, but the source must be treated (root canal, drainage, or extraction) to get fully better and prevent the infection from returning. - Take Augmentin as prescribed. If symptoms start to improve, antibiotics can usually be stopped 24 hours after they have fully resolved. A check-in at around 3 days is recommended to make sure things are getting better. - Pain control: NSAIDs (like Toradol today, then a switch to ibuprofen if appropriate) are first choice for dental pain. Combining an NSAID with acetaminophen can provide strong relief. Avoid opioids unless specifically advised. - Mouth care: Gentle rinsing with warm salt water (? teaspoon salt in 8 oz warm water) 2?3 times daily may provide comfort. Do not apply heat to the face; use cool compresses for comfort if there is swelling. When to seek urgent or emergency care - Go to the emergency department now if any of these occur: trouble breathing or swallowing, fever or chills, rapidly increasing facial or neck swelling, eye swelling, severe dehydration, confusion, or if the jaw becomes very stiff (cannot open mouth). - Call the dental office or clinic if: pain or swelling is not improving after 48?72 hours on antibiotics, new drainage of pus develops, or there are medication side effects (rash, severe diarrhea, stomach bleeding symptoms). Follow-up plan - Dental appointment: Schedule an urgent visit within 24?48 hours for definitive treatment (root canal or drainage, or extraction if advised). Do not delay. - Recheck: A phone or in-person check-in within about 3 days helps ensure the infection is improving and to adjust antibiotics if needed. Stop the antibiotic 24 hours after all infection signs have resolved. - Pain course: Pain should steadily improve over a few days after proper dental treatment. If pain is still more than moderate after 72 hours, contact the dentist for reassessment. Antibiotic stewardship notes - Antibiotics are used when there are signs of spreading infection or systemic symptoms, or when urgent dental treatment is not immediately available. Definitive dental care is the farrar to cure. - Amoxicillin-based therapy is preferred first line for most dental infections in adults who can take penicillins; amoxicillin?clavulanate (Augmentin) is appropriate when broader coverage is needed or if initial therapy has not worked. - Do not save leftover antibiotics or share them. Dispose of unused antibiotics at a local medication disposal site. Contact information - For questions about medications or side effects: call the clinic or pharmacy listed on the discharge paperwork. - For worsening infection or urgent concerns: use the after-hours number or go to the nearest emergency department. 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[employer] Documented by User: Lorenzo Alfaro DO 12/04/24 23:05 HPI - Dental/Oral General: Chief complaint: Dental/Oral Stated complaint: [place] Teeth pain Time Seen by Provider: 12/04/24 21:57 Related Data Home Medications ?Medication ?Instructions ?Recorded ?Confirmed hydrocodone 7.5 mg-acetaminophen 1 tab PO Q8H PRN Pain 01/22/23 01/22/23 325 mg tablet Previous Rx's ?Medication ?Instructions ?Recorded cock up splint #1 ea 06/25/22 diclofenac sodium 75 mg 75 mg PO Q12H PRN pain #20 tabs 01/22/23 tablet,delayed release amoxicillin 875 mg-potassium 1 tab PO BID 10 days #20 tabs 12/04/24 clavulanate 125 mg tablet ketorolac 10 mg tablet 10 mg PO Q8H PRN pain #15 tabs 12/04/24 Allergies Allergy/AdvReac Type Severity Reaction Status Date / Time codeine Allergy ADR-Nausea Verified 10/18/24 09:44 [facility] ED PFSH: Medical History Psychiatric care No pertinent past medical history No pertinent family history Social History Smoking and tobacco/nicotine status: never used tobacco/nicotine Course Vital Signs: Vital signs: Vital Signs Temperature 98.4 F 12/04/24 21:33 Pulse Rate 68 12/04/24 21:33 Respiratory Rate 16 12/04/24 21:33 Blood Pressure 123/74 12/04/24 21:33 Pulse Oximetry 98 12/04/24 21:33 Oxygen Delivery Me thod Room Air 12/04/24 21:33 MDM - Dental/Oral Medical Decision Making Patient will be treated for dental abscess prior to being seen by dentist this week, which she is already in contact with. He is given Toradol here for pain and his first dose of Augmentin. General return precautions given. Patient was originally seen by Mr. Ariela PA-C. I agree with his history, evaluation, and management. Discharge Plan Discharge Patient Disposition: Home Clinical Impression: Dental abscess Fracture of tooth Qualifiers: Encounter type: initial encounter Fracture type: closed Qualified Code(s): S02.5XXA - Fracture of tooth (traumatic), initial encounter for closed fracture Condition: Stable Prescriptions: New ketorolac 10 mg tablet 10 mg PO Q8H PRN (Reason: pain) Qty: 15 0RF amoxicillin-pot clavulanate 875-125 mg tablet 1 tab PO BID 10 Days Qty: 20 0RF No Action (DME) cock up splint See Rx Instructions .Route .MEDSUPPLY Qty: 1 0RF Rx Instructions: As directed hydrocodone-acetaminophen 7.5-325 mg tablet 1 tab PO Q8H PRN (Reason: Pain) diclofenac sodium 75 mg tablet,delayed release (DR/EC) 75 mg PO Q12H PRN (Reason: pain) Qty: 20 0RF Discharge Orders: Discharge ED (Routine); Ordered 12/04/24 Ordered By: Jesus Titus Patient Instructions: Patient Portal & Yahir Instructions Activity Restrictions/Additional Instructions: Dental discharge Reason for visit: fractured tooth with concern for dental infection (dental abscess). A dentist needs to treat the tooth as soon as possible (root canal or draining an abscess, or extraction if recommended). Antibiotics can help with infection, but they are not a cure by themselves. Dental treatment is the most important step for getting better. Medications prescribed today - Augmentin (amoxicillin?clavulanate): This is an antibiotic to help treat a dental infection. Take it exactly as directed with food to reduce stomach upset. Do not skip doses. Stop the antibiotic 24 hours after all symptoms (fever, facial swelling, draining pus, and spreading redness) have completely resolved, even if there are pills left. - Toradol (ketorolac): This is a non-steroidal anti-inflammatory drug (NSAID) for pain. Take only as prescribed and for the shortest time needed, usually no more than a few days. Do not combine with other NSAIDs like ibuprofen or naproxen. Avoid if there is a history of stomach ulcers/bleeding, kidney problems, or if taking blood thinners, unless a clinician has told you it is safe. Important safety information - Augmentin: Take each dose with a meal or snack. Call right away for rash, hives, trouble breathing, or severe diarrhea (especially watery/bloody stools or diarrhea lasting more than 2?3 days). Do not save antibiotics for future use or share them. - Toradol: Use the lowest dose for the shortest time. Stop and seek care for black/tarry stools, vomiting blood, new stomach pain, decreased urination, swelling, or easy bruising/bleeding. Care for a fractured tooth - Eat soft, cool foods; avoid chewing on the injured side. - Avoid very hot, very cold, hard, or sticky foods that can worsen pain or break the tooth more. - If a piece of the tooth broke off and is available, keep it moist (milk or saline) and bring it to the dentist; it may help with repair in some cases. - [id number] options: If additional pain control is needed and there are no kidney, stomach, or bleeding problems, an NSAID like ibuprofen may help after Toradol is stopped. Acetaminophen can be used with an NSAID if needed, keeping total acetaminophen under 3,000?4,000 mg per day from all sources. - A dentist should evaluate the tooth urgently to decide on repair (filling or bonding), root canal, or extraction. Care for a dental abscess (tooth infection) - Why dental treatment is needed: The infection comes from inside the tooth. Antibiotics can help if there are signs of infection, but the source must be treated (root canal, drainage, or extraction) to get fully better and prevent the infection from returning. - Take Augmentin as prescribed. If symptoms start to improve, antibiotics can usually be stopped 24 hours after they have fully resolved. A check-in at around 3 days is recommended to make sure things are getting better. - Pain control: NSAIDs (like Toradol today, then a switch to ibuprofen if appropriate) are first choice for dental pain. Combining an NSAID with acetaminophen can provide strong relief. Avoid opioids unless specifically advised. - Mouth care: Gentle rinsing with warm salt water (? teaspoon salt in 8 oz warm water) 2?3 times daily may provide comfort. Do not apply heat to the face; use cool compresses for comfort if there is swelling. When to seek urgent or emergency care - Go to the emergency department now if any of these occur: trouble breathing or swallowing, fever or chills, rapidly increasing facial or neck swelling, eye swelling, severe dehydration, confusion, or if the jaw becomes very stiff (cannot open mouth). - Call the dental office or clinic if: pain or swelling is not improving after 48?72 hours on antibiotics, new drainage of pus develops, or there are medication side effects (rash, severe diarrhea, stomach bleeding symptoms). Follow-up plan - Dental appointment: Schedule an urgent visit within 24?48 hours for definitive treatment (root canal or drainage, or extraction if advised). Do not delay. - Recheck: A phone or in-person check-in within about 3 days helps ensure the infection is improving and to adjust antibiotics if needed. Stop the antibiotic 24 hours after all infection signs have resolved. - Pain course: Pain should steadily improve over a few days after proper dental treatment. If pain is still more than moderate after 72 hours, contact the dentist for reassessment. Antibiotic stewardship notes - Antibiotics are used when there are signs of spreading infection or systemic symptoms, or when urgent dental treatment is not immediately available. Definitive dental care is the farrar to cure. - Amoxicillin-based therapy is preferred first line for most dental infections in adults who can take penicillins; amoxicillin?clavulanate (Augmentin) is appropriate when broader coverage is needed or if initial therapy has not worked. - Do not save leftover antibiotics or share them. Dispose of unused antibiotics at a local medication disposal site. Contact information - For questions about medications or side effects: call the clinic or pharmacy listed on the discharge paperwork. - For worsening infection or urgent concerns: use the after-hours number or go to the nearest emergency department. 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
--- OUTSIDE RECORDS SUMMARY | 2024-12-07 08:00 | XMS_ITS | Clinical Summary ---
Author Organization [facility] Address [address] [place] [address] Care Team Providers Care Data Governance Consultant Name Role Phone Unavailable Primary Care Provider Unavailabl e Allergies Active Allergy Reactions Criticality Noted Date Comments Codeine Nausea and Vomiting Medium 10/01/2016 Medications No known medications Active Problems Problem Noted Date Diagnosed Date Abdominal cramping 10/01/2016 Cannabis dependence, episodic use 10/01/2016 Genital warts 10/01/2016 Family History Medical History Relation Name Comments Healthy Brother 1 Healthy Brother 2 Healthy Brother 3 Healthy Father Healthy Mother Healthy Sister 1 Healthy Sister 2 Diabetes Son Relation Name Status Comments Brother 1 Alive Brother 2 Alive Brother 3 Alive Father Alive Mother Alive Sister 1 Alive Sister 2 Alive Son Alive Social History Tobacco Use Types Packs/Day Years Used Date Smoking Tobacco: Some Days Cigarettes Smokeless Tobacco: Never Alcohol Use Standard Drinks/Week Comments No 0 (1 standard drink = 0.6 oz pur e alcohol) Sex and Gender Information Value Date Recorded Sex Assigned at Not on file Legal Sex Male 3:59 PM CDT Gender Identity Not on file Sexual Orientation Not on file Last Filed Vital Signs Vital Sign Reading Time Taken Comments Blood Pressure 121/84 06/29/2017 4:32 PM CHECK WEIGHER Pulse 62 06/29/2017 4:32 PM CHECK WEIGHER Temperature 36.4 C (97.6 F) 10/01/2016 9:50 AM CDT Respiratory Rate - - Oxygen Saturation 99% 10/01/2016 9:50 AM CDT Inhaled Oxygen Concentration - - Weight 76.2 kg (168 lb) 06/29/2017 4:32 PM CHECK WEIGHER Height 180.3 cm (5' 11 ) 06/29/2017 4:32 PM CHECK WEIGHER Body Mass Index 23.43 06/29/2017 4:32 PM CHECK WEIGHER Plan of Treatment Health Maintenance Due Date Last Done Comments HPV VACCINES (1 - Male 3-dose series) 2006 DTAP/TDAP/TD VACCINES (1 - Tdap) 2010 HEPATITIS B VACCINES (1 of 3 - 19+ 3-dose series) 02/25 INFLUENZA VACCINE (#1) 2024 Insurance
--- OUTSIDE RECORDS SUMMARY | 2024-12-07 08:00 | XMS_ITS | Clinical Summary ---
Author Organization [facility] Address [address] [place]: Epic Prelude ADT [place] [address] Care Team Providers Care Physician Locums Urgent Care Name Role Phone Unavailable Primary Care Provider Unavailabl e Allergies Active Allergy Reactions Criticality Noted Date Comments Codeine Nausea and Vomiting Medium 10/01/2016 Active Problems Problem Noted Date Diagnosed Date Cannabis dependence, episodic use 10/01/2016 Genital warts 10/01/2016 Abdominal cramping 10/01/2016 Family History Medical History Relation Name [...] at Not on file Legal Sex Male 3:15 AM [employer]F [employer] Gender Identity Not on file Sexual Orientation Not on file Last Filed Vital Signs Vital Sign Reading Time Taken Comments Blood Pressure 121/84 06/29/2017 4:32 PM [employer]F BUSINESS [employer]ICER Pulse 62 06/29/2017 4:32 PM [employer]IEF BUSINESS OFFICER Temperature 36.4 C (97.6 F) 10/01/2016 9:50 AM CDT Respiratory Rate - - Oxygen Saturation - - Inhaled Oxygen Concentration - - Weight 76.2 kg (168 lb) 06/29/2017 4:32 PM [employer] Height 180.3 cm (5' 11 ) 06/29/2017 4:32 PM [employer]IEF BUSINESS OFFICER Body Mass Index 23.43 06/29/2017 4:32 PM CHIEF BUSINESS OFFICER Plan of Treatment Health Maintenance Due Date Last Done Comments HPV VACCINES (1 - Male 3-dose series) 2006 DTAP/TDAP/TD VACCINES (1 - Tdap) 2010 HEPATITIS B VACCINES (1 of 3 - 19+ 3-dose series) 02/25 INFLUENZA VACCINE (#1) 2024
== END 2024-12-04 22:29 | disposition home or self-care (01) ==
PROVIDERS: Emergency Provider Physician Assistant
DX: S02.5XXA Fracture of tooth (traumatic), initial encounter for closed fracture (principal); Z88.5 Allergy status to narcotic agent; X58.XXXA Exposure to other specified factors, initial encounter
CPT/HCPCS: 96372; 99284; J1885; J9999